=== PATIENT | female | born 2005 | race Two or more races ===

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

== ENCOUNTER → 2023-10-12 | Outpatient (CLI) | payer OTHER ==
[2023-10-12 10:49] LABS: HEMATOCRIT 38.6 % (36.0-45.00); HEMOGLOBIN 13.1 g/dL (12.0-15.00); MEAN CELL VOLUME 90.8 fL (80.00-100.00); MEAN CORPUSCULAR HEMOGLOBIN 30.9 pg (27.00-32.0); PLATELET COUNT 223 K/uL (150-450); RED BLOOD COUNT 4.25 M/uL (4.00-6.00); RED CELL DISTRIBUTION WIDTH 13.8 % (11.5-14.5)
[2023-10-12 10:54] LABS: URINE APPEARANCE Clear; URINE BILIRRUBIN Negative (NEGATIVE); URINE BLOOD Negative; URINE COLOR Yellow; URINE GLUCOSE Negative (NEGATIVE); URINE KETONE Negative (NEGATIVE); URINE LEUKOCYTE Negative; URINE NITRATE Negative; URINE PROTEIN Negative (NEGATIVE)
[2023-10-12 10:55] LABS: URINE BACTERIA 313.7 uL (0.0-1933); URINE EPITHELIAL CELLS 27.3 uL (0.0-38.8); URINE RBC 5.8 uL (0.0-20.8); URINE WBC 19.1 uL (0.0-23.2)
[2023-10-12 11:53] LABS: ALBUMIN 4.2 gm/dL (3.4-5.0); ALKALINE PHOSPHATASE 101 U/L (50-136); ALT/SGPT 45 U/L (12-78); ANION GAP 9 (10.0-20.0); AST/SGOT 24 U/L (15-37); BLOOD UREA NITROGEN 18 mg/dL (7-18); BUN CREA RATIO 29 (7.0-25.0); CARBON DIOXIDE 27 mEq/L (21-32); CHLORIDE 109 mmol/L (98-107); CHOL HDL RATIO 2.4 (0-5.0); CHOLESTEROL 140 mg/dL (0-200); CREATININE SERUM 0.63 mg/dL (0.55-1.02); GFR 120.47; GLOBULINA 3.4 G/DL (2.4-3.5); GLUCOSE FASTING 88 mg/dL (65-100); HDL 59 mg/dl (40-60); LDL 69 mg/dl (0-130); OSMOLALITY SERUM 283 MOSM/KG (275-295); SODIUM 141 mmol/L (136-145); T4 FREE 0.93 NG/ML (0.76-1.46); TOTAL PROTEIN 7.6 gm/dL (6.4-8.2); TRIGLYCERIDES 62 mg/dL (0-150); TSH 0.609 uIU/mL (0.358-3.74); VLDL 12 (0-39)
[2023-10-12 11:54] LABS: HCG QUANTITATIVE < 1 mUI/mL (1-3)
[2023-10-16 12:15] LABS: FOLLICLE STIMULATING HORMONE 4.6 mIU/mL (.); LEUTEINIZING HORMONE 10.4 mIU/mL (.); PROGESTERONA 0.1 ng/mL (.); PROLACTIN 14.9 ng/mL (4.8-33.4); T T 44 ng/dL (13-71); test free 2.7 pg/mL (0.0-4.2)
== END | disposition home or self-care (01) ==
LOC: LAB 07:39
PROVIDERS: ATTEND Obstetrics & Gynecology
DX: E03.9 Hypothyroidism, unspecified (principal); I10 Essential (primary) hypertension; Z00.00 Encounter for general adult medical examination without abnormal findings; E78.00 Pure hypercholesterolemia, unspecified; N91.0 Primary amenorrhea; E55.9 Vitamin D deficiency, unspecified; Z21 Asymptomatic human immunodeficiency virus [HIV] infection status; R79.9 Abnormal finding of blood chemistry, unspecified; R79.89 Other specified abnormal findings of blood chemistry

== ENCOUNTER → 2023-10-26 09:21 | Outpatient (CLI) | payer OTHER | END | disposition home or self-care (01) | LOC: SONOGRAMA 09:21 | PROVIDERS: ATTEND Obstetrics & Gynecology | DX: N94.0 Mittelschmerz (principal); R10.2 Pelvic and perineal pain; N94.89 Other specified conditions associated with female genital organs and menstrual cycle ==

== ENCOUNTER 2024-02-14 06:07 | Outpatient (CLI) | payer OTHER ==
[2024-02-14 06:51] LABS: HEMATOCRIT 39.8 % (36.0-45.00); HEMOGLOBIN 13.8 g/dL (12.0-15.00); MEAN CELL VOLUME 92.3 fL (80.00-100.00); MEAN CORPUSCULAR HGB CONC 34.7 g/dl (32.0-36.0); PLATELET COUNT 230 K/uL (150-450); RED BLOOD COUNT 4.32 M/uL (4.00-6.00); RED CELL DISTRIBUTION WIDTH 13.4 % (11.5-14.5)
[2024-02-14 07:43] LABS: ALBUMIN 3.9 gm/dL (3.4-5.0); BILIRUBIN TOTAL 0.47 mg/dL (0.3-1.2); CALCIUM 9.2 mg/dL (8.5-10.1); CHOL HDL RATIO 2.3 (0-5.0); CREATININE SERUM 0.67 mg/dL (0.55-1.02); GFR 112.21; GLOBULINA 3.3 G/DL (2.4-3.5); POTASSIUM 3.99 mEq/L (3.5-5.1); T4 TOTAL 6.94 UG/DL (4.8-13.9); TOTAL PROTEIN 7.2 gm/dL (6.4-8.2); TSH 1.58 uIU/mL (0.358-3.74)
== END 2024-02-14 06:18 | disposition home or self-care (01) ==
LOC: LAB 06:07
PROVIDERS: ATTEND Radiology Diagnostic Radiology
DX: Z13.1 Encounter for screening for diabetes mellitus (principal); Z13.29 Encounter for screening for other suspected endocrine disorder

== ENCOUNTER 2024-08-01 00:21 | Emergency (ER) | payer OTHER ==
[~2024-08-01] VITALS: Ht 162.6 cm; Wt 71.7 kg
[2024-08-01] MEDS ORDERED: 0.9 % SODIUM CHLORIDE 1,000 ML IV ONE (02:15)
[2024-08-01] MEDS ORDERED: HYOSCYAMINE SULFATE 0.125 MG TAB.SUBL SL ONE (02:15)
[2024-08-01] MEDS ORDERED: HYOSCYAMINE SULFATE 0.125 MG TAB.SUBL ONE (02:17)
[2024-08-01] MEDS ORDERED: BARIUM SULFATE 450 ML ORAL.SUSP PO ONE (02:21)
[2024-08-01 02:54] LABS: BASO % 0.7 % (0.1-1.2); EOS # 0.26 (0.04-0.54); EOS % 3.6 % (0.7-7.0); HEMATOCRIT 38.9 % (34.1-44.9); HEMOGLOBIN 13.4 g/dL (11.2-15.7); LYMPH # 1.88 (1.18-3.74); LYMPH % 26.1 % (19.3-53.1); MEAN CORPUSCULAR HEMOGLOBIN 31.4 pg (25.6-32.2); MONO # 0.53 (0.24-0.82); MONO % 7.4 % (4.7-12.5); NEUT # 4.47 (1.56-6.13); NEUT % 62.1 % (34.0-71.1); PLATELET COUNT 212 K/uL (163-369); RED BLOOD COUNT 4.27 M/uL (3.93-5.22); RED CELL DISTRIBUTION WIDTH 12.2 % (11.6-14.4)
[2024-08-01 03:11] LABS: INR 1.01; PARTIAL THROMBOPLASTIN TIME 30.4 SECONDS (22.0-34.0)
[2024-08-01 03:19] LABS: ALKALINE PHOSPHATASE 84 U/L (50-136); ALT/SGPT 21 U/L (12-78); AMYLASE 42 U/L (25-115); ANION GAP 13 (10.0-20.0); AST/SGOT 15 U/L (15-37); BILIRUBIN TOTAL 0.53 mg/dL (0.3-1.2); BILIRUBIN,CONJUGATED 0.18 mg/dL (0.0-0.2); BILIRUBIN,UNCONJUGATED 0.35 mg/dL (0.0-0.6); BLOOD UREA NITROGEN 14 mg/dL (7-18); BUN CREA RATIO 23 (7.0-25.0); CALCIUM 9.1 mg/dL (8.5-10.1); CARBON DIOXIDE 25 mEq/L (21-32); CHLORIDE 107 mmol/L (98-107); CREATININE SERUM 0.62 mg/dL (0.55-1.02); GFR 121.51; GLOBULINA 3.2 G/DL (2.4-3.5); GLUCOSE FASTING 82 mg/dL (65-100); LIPASE 26 U/L (13-75); OSMOLALITY SERUM 281 MOSM/KG (275-295); POTASSIUM 3.69 mEq/L (3.5-5.1); SODIUM 141 mmol/L (136-145); TOTAL PROTEIN 7.2 gm/dL (6.4-8.2)
[2024-08-01 03:20] LABS: HCG QUANTITATIVE < 1 mUI/mL (1-3)
[2024-08-01 03:47] LABS: PH,URINE 6.5 (5.0-8.0); URINE APPEARANCE Clear; URINE BILIRRUBIN Negative (NEGATIVE); URINE BLOOD Negative; URINE COLOR Yellow; URINE GLUCOSE Negative (NEGATIVE); URINE KETONE Trace (NEGATIVE); URINE LEUKOCYTE Negative; URINE NITRATE Negative; URINE PROTEIN Negative (NEGATIVE)
[2024-08-01 03:51] LABS: URINE BACTERIA 276.5 uL (0.0-1933); URINE RBC 2.3 uL (0.0-20.8); URINE WBC 27.3 uL (0.0-23.2)
[2024-08-01 04:24] LABS: URINE CAST 0.14 uL (0.0-1.40)
[2024-08-01] MEDS ORDERED: DOLOGESIC-DF 51 EACH PO (07:07)
== END 2024-08-01 07:46 ==
LOC: ER 01:44
PROVIDERS: General Practice
DX: R10.9 Unspecified abdominal pain (principal); N83.292 Other ovarian cyst, left side; J45.909 Unspecified asthma, uncomplicated
CPT/HCPCS: 36415; 74177; Q9965

== ENCOUNTER 2024-10-18 08:23 | Outpatient (CLI) | payer OTHER ==
[~2024-10-18 08:23] MED LIST changes: +DOLOGESIC-DF 51 EACH PO
== END 2024-10-18 13:32 | disposition home or self-care (01) ==
LOC: LAB 08:23
PROVIDERS: ATTEND Radiology Diagnostic Radiology
DX: Z02.79 Encounter for issue of other medical certificate (principal)

== ENCOUNTER 2025-02-11 09:21 | Outpatient (CLI) | payer OTHER ==
[2025-02-11 14:20] LABS: BASO % 1.0 % (0.1-1.2); EOS # 0.18 (0.04-0.54); EOS % 3.1 % (0.7-7.0); LYMPH # 0.81 (1.18-3.74); LYMPH % 13.8 % (19.3-53.1); MEAN PLATELET VOLUME 11.80 fl (9.4-12.4); MONO # 0.28 (0.24-0.82); MONO % 4.8 % (4.7-12.5); NEUT # 4.54 (1.56-6.13); NEUT % 77.1 % (34.0-71.1); RED CELL DISTRIBUTION WIDTH 11.9 % (11.6-14.4)
[2025-02-11 14:51] LABS: URINE APPEARANCE Clear; URINE BILIRRUBIN Negative (NEGATIVE); URINE BLOOD Negative; URINE COLOR Yellow; URINE GLUCOSE Negative (NEGATIVE); URINE KETONE Negative (NEGATIVE); URINE LEUKOCYTE Negative; URINE NITRATE Negative; URINE PROTEIN Negative (NEGATIVE); URINE UROBILINOGEN 1.0 E.U./dl
[2025-02-11 14:54] LABS: URINE BACTERIA 354.5 uL (0.0-1933); URINE EPITHELIAL CELLS 29.5 uL (0.0-38.8); URINE RBC 2.8 uL (0.0-20.8); URINE WBC 8.7 uL (0.0-23.2)
[2025-02-11 14:56] LABS: URINE CAST 0.14 uL (0.0-1.40)
[2025-02-11 15:20] LABS: ALT/SGPT 24.0 U/L (12-78); AST/SGOT 12.0 U/L (15-37); BILIRUBIN TOTAL 0.72 mg/dL (0.3-1.2); BUN CREA RATIO 18.0 (7.0-25.0); CHOL HDL RATIO 1.9 (0-5.0); CREATININE SERUM 0.65 mg/dL (0.55-1.02); GFR 115.06; GLOBULINA 3.8 G/DL (2.4-3.5); GLUCOSE FASTING 82.0 mg/dL (65-100); HDL 77.0 mg/dl (40-60); LDL 53.0 mg/dl (0-130); OSMOLALITY SERUM 278.0 MOSM/KG (275-295); TSH 0.424 uIU/mL (0.358-3.74); VLDL 13.0 (0-39)
== END 2025-02-11 09:51 | disposition home or self-care (01) ==
LOC: LAB 09:21
PROVIDERS: ATTEND Obstetrics & Gynecology
DX: E03.8 Other specified hypothyroidism (principal); D63.8 Anemia in other chronic diseases classified elsewhere; N30.90 Cystitis, unspecified without hematuria; E78.00 Pure hypercholesterolemia, unspecified; R73.9 Hyperglycemia, unspecified; K92.1 Melena; Z12.11 Encounter for screening for malignant neoplasm of colon; E55.9 Vitamin D deficiency, unspecified; N76.0 Acute vaginitis